=== PATIENT | female | born 1960 | race Caucasian/White ===

== ENCOUNTER 2020-12-21 15:00 | Outpatient (RCR) | payer OTHER, SELFPAY ==
[2020-10-19 14:07] VITALS: BMI 47.5
== END 2021-01-09 11:56 | disposition home or self-care (01) ==
LOC: ANHDMC 15:00
PROVIDERS: Referring Provider Family Medicine; Visit Provider Family Medicine
DX: E66.9 Obesity, unspecified (principal); I10 Essential (primary) hypertension; Z71.3 Dietary counseling and surveillance
CPT/HCPCS: 97802